=== PATIENT | female | born 1970 | race African-American/Black ===

== ENCOUNTER 2018-07-07 09:52 | Emergency (ER) | payer BC, OTHER ==
[~2018-07-07] VITALS: Ht 165.1 cm; Wt 81.6 kg
--- NOTE | 2018-07-07 10:15 | PHYS DOC ---
Past History Past Surgical History: Hysterectomy Smoking: Non-smoker Drug Use: None Adult General Chief Complaint Chief Complaint: RIB PAIN HPI HPI Patient is a 47-year-old female presents complaining of right-sided chest disc omfort that is been present constantly for the past month. Nothing seems to make it better or worse. Patient recently traveled to, within the past week, to the from [place] for new assignment. Notes that she's had some leg swelling for the past week that started prior to the travel. Denies any fever. Denies any cough. Denies any recent changes in weight. No significant relief with [id number] medicines.[] Review of Systems Review of Systems Constitutional: Denies fever or chills [] Eyes: Denies change in visual acuity, redness, or eye pain [] HENT: Denies nasal congestion or sore throat [] Respiratory: Denies cough or shortness of breath [] Cardiovascular: No additional information not addressed in HPI [] GI: Denies abdominal pain, nausea, vomiting, bloody stools or diarrhea [] : Denies dysuria or hematuria [] Musculoskeletal: Denies back pain or joint pain [] Integument: Denies rash or skin lesions [] Neurologic: Denies headache, focal weakness or sensory changes [] Endocrine: Denies polyuria or polydipsia [] All other systems were reviewed and found to be within normal limits, except as documented in this note. Current Medications Current Medications Current Medications Medications (Trade) Dose Ordered Sig/Eva Start Time Stop Time Status Last Admin Dose Admin Ketorolac Tromethamine (Toradol 15mg Vial) 15 mg 1X ONCE 07/07/18 10:15 07/07/18 10:16 UNV Physical Exam Physical Exam Constitutional: Well developed, well nourished, no acute distress, non-toxic appearance. [] HENT: Normocephalic, atraumatic, bilateral external ears normal, oropharynx moist, no oral exudates, nose normal. [] Eyes: PERRLA, EOMI, conjunctiva normal, no discharge. [] Neck: Normal range of motion, no tenderness, supple, no stridor. [] Cardiovascular:Heart rate regular rhythm, no murmur [] Lungs & Thorax: Bilateral breath sounds clear to auscultation, no flail segment, no tenderness to palpation, no crepitus.[] Abdomen: Bowel sounds normal, soft, no tenderness, no masses, no Mitchell's sign, no pulsatile masses. [] Skin: Warm, dry, no erythema, no rash. [] Back: No tenderness, no CVA tenderness. [] Extremities: No tenderness, no cyanosis, no clubbing, ROM intact, no edema. [] Neurologic: Alert and oriented X 3, normal motor function, normal sensory function, no focal deficits noted. [] Psychologic: Affect normal, judgement normal, mood normal. [] EKG EKG EKG shows a sinus rhythm at 72 bpm, normal axis, normal QTC, no ST elevations. No old EKG is available for comparison. Interpreted by me at 1051.[] Radiology/Procedures Radiology/Procedures PROCEDURE: CT ANGIOGRAPHY CHEST CTA OF THE CHEST WITH AND WITHOUT CONTRAST Clinical indications: Right-sided chest pain. Recent travel. Technique: Noncontrast axial localizer was performed. After IV infusion of 100 cc of Omnipaque 350, helical CT scanning of the chest was performed using the CT pulmonary embolism protocol. A coronal MIP reconstruction was generated. PQRS compliance Statement One or more of the following individualized dose reduction techniques were utilized for this study: 1. Automated exposure control 2. Adjustment of the mA and/or kV according to patient size 3. Use of iterative reconstruction technique Comparison: None available Findings: No pulmonary embolism is evident. No thoracic aortic dissection or focal aneurysmal dilatation is seen. The heart size is normal and no pericardial effusion is seen. No enlarged thoracic lymphadenopathy is evident. No acute lung infiltrate or lung mass or pleural effusion or pulmonary edema or pneumothorax is seen. Mild atelectasis of the inferior segment of the lingula is seen. The proximal bronchial tree is patent. No adrenal mass is evident. No lytic process is seen. IMPRESSION: No pulmonary embolism. No acute lung infiltrate.[] Course & Med Decision Making Course & Med Decision Making Pertinent Labs and Imaging studies reviewed. (See chart for details) ED course: Patient arrived, was placed in bed, and tolerated exam well. She was transported to and from radiology with any complications. After the return of lab and imaging findings, these were discussed with the patient who voiced understanding. All questions were answered. She was discharged in improved condition. Medical decision making: There is no evidence of an acute coronary syndrome, pneumonia, pneumothorax, pulmonary embolism, thoracic aneurysm dissection, nor esophageal rupture. No evidence of this being possible gallbladder disease. Will have patient follow-up with her primary care physician for further evaluation of other etiologies for this discomfort.[] Dragon Disclaimer Dragon Disclaimer This electronic medical record was generated, in whole or in part, using a voice recognition dictation system. Departure Departure: Impression: Primary Impression: Right-sided chest pain Disposition: HOME, SELF-CARE Condition: IMPROVED Referrals: PCP,NO (PCP) Patient Instructions: Chest Pain (Nonspecific) Additional Instructions: Follow-up with your regular doctor in 2 days. Take the medication as prescribed. Return to the ER if worsening discomfort, worsening difficulty breathing, or any other concerns. Scripts Meloxicam (MELOXICAM) 7.5 Mg Tablet 7.5 MG PO DAILY for PAIN, #20 TAB Prov: PAUL FORMAN DO 07/07/18 PAUL FORMAN DO July 07, 2018 10:15
[2018-07-07] MEDS ORDERED: KETOROLAC 15 MG/ML VIAL. IV ONE (10:30)
[2018-07-07 10:36] LABS: BASO # 0.1 x10^3/uL (0.0-0.2); BASO % 1 % (0-3); EOS % 0 % (0-3); HEMATOCRIT 41.2 % (36.0-47.0); LYMPH # 3.2 x10^3/uL (1.0-4.8); LYMPH % 46 % (24-48); MEAN CORPUSCULAR HEMOGLOBIN 30 pg (25-35); MEAN CORPUSCULAR HGB CONC 34 g/dL (31-37); MEAN CORPUSCULAR VOLUME 89 fL (79-100); MONO # 0.7 x10^3/uL (0.0-1.1); MONO % 10 % (0-9); NEUT % 44 % (31-73); PLATELET COUNT 260 x10^3/uL (140-400); RED BLOOD COUNT 4.63 x10^6/uL (3.50-5.40); RED CELL DISTRIBUTION WIDTH 12.9 % (11.5-14.5); WHITE BLOOD COUNT 6.9 x10^3/uL (4.0-11.0)
[2018-07-07] MEDS ORDERED: IOHEXOL 350 MG/ML 100 ML VIAL. IV ONE (10:45)
[2018-07-07 10:57] LABS: ALBUMIN 3.5 g/dL (3.4-5.0); CALCIUM 8.7 mg/dL (8.5-10.1); CREATININE 0.8 mg/dL (0.6-1.0); GFR 77.2; MAGNESIUM 1.8 mg/dL (1.8-2.4); POTASSIUM 4.2 mmol/L (3.5-5.1); TOTAL BILIRUBIN 0.4 mg/dL (0.2-1.0); TOTAL PROTEIN 7.1 g/dL (6.4-8.2)
--- NOTE | 2018-07-07 12:10 | RAD ---
CTA OF THE CHEST WITH AND WITHOUT CONTRAST Clinical indications: Right-sided chest pain. Recent travel. Technique: Noncontrast axial localizer was performed. After IV infusion of 100 cc of Omnipaque 350, helical CT scanning of the chest was performed using the CT pulmonary embolism protocol. A coronal MIP reconstruction was generated. PQRS compliance Statement One or more of the following individualized dose reduction techniques were utilized for this study: 1. Automated exposure control 2. Adjustment of the mA and/or kV according to patient size 3. Use of iterative reconstruction technique Comparison: None available Findings: No pulmonary embolism is evident. No thoracic aortic dissection or focal aneurysmal dilatation is seen. The heart size is normal and no pericardial effusion is seen. No enlarged thoracic lymphadenopathy is evident. No acute lung infiltrate or lung mass or pleural effusion or pulmonary edema or pneumothorax is seen. Mild atelectasis of the inferior segment of the lingula is seen. The proximal bronchial tree is patent. No adrenal mass is evident. No lytic process is seen. IMPRESSION: No pulmonary embolism. No acute lung infiltrate. Electronically signed by: Raghav Forbes MD (07/07/2018 12:08 PM) [facility]
[2018-07-07] MEDS ORDERED: MELO7.5T29 PO (12:17)
[2018-07-07 12:25] VITALS: BP 122/48
== END 2018-07-07 12:25 | disposition home or self-care (01) ==
LOC: ER 09:52
DX: R07.89 Other chest pain (principal)
CPT/HCPCS: 36415; 71275; 80053; 83690; 83735; 83880; 84484; 85025; 85379; 85610; 85730; 93005; 96374; 99285; J1885; Q9967